=== PATIENT | female | born 1960 | race Caucasian/White ===

== ENCOUNTER 2019-05-10 07:32 | Inpatient (IN) ==
--- NOTE | 2019-05-02 10:11 | Anesthesiology Consultation ---
Date of Service May 02, 2019 Assessment & Plan (1) Encounter for pre-operative examination: PCP clearance 03/08/2019 = chronic medical conditions are stable at this time. Review of patient history, preop labs, EKG and chest x-ray, and physical exam are within normal limits. EKG compared to previous 04/15/2017 and shows no change. Patient is medically stable to proceed with surgery as planned." CHECK CBC, BMP AM DOS (no labs done within 60 days) Chart Review Chart Review: Acceptable Risk for Surgery (pending labs AM DOS) and Patient NOT seen in Pre Admission Testing History Surgery Operation Date: 05/10/19 10:30 Proposed Procedures p Left Ankle Removal of External Fixation; - John Way DO s Left Ankle and Subtalar Fusion with Retrocalcaneal Nail, Femoral Head Allograft, Application of Vivigen - John Way DO Height/Weight Height: 5 ft 10 in Weight: 83.915 kg Allergies Allergy/AdvReac Type Severity Reaction Status Date / Time Penicillins Allergy Unknown PASSED Verified 04/24/19 09:32 OUT- A CHILD-HAS NOT HAD SINCE Medications Home Medications Medication Instructions Recorded Confirmed Last Taken Ceftriaxone 50 mg PO QPM 04/24/19 04/24/19 Unknown alendronate 70 mg PO WK 04/24/19 04/24/19 Unknown calcium carbonate-vitamin D3 1 cap PO QAM 04/24/19 04/24/19 Unknown [Calcium 600 + D(3)] cholecalciferol (vitamin D3) 2,000 unit PO QAM 04/24/19 04/24/19 Unknown [Vitamin D3] cyanocobalamin (vitamin B-12) 1,000 mcg PO QAM 04/24/19 04/24/19 Unknown diclofenac sodium 50 mg PO BID 04/24/19 04/24/19 Unknown folic acid 2 mg PO QAM 04/24/19 04/24/19 Unknown hydroxychloroquine [Plaquenil] 200 mg PO TID 04/24/19 04/24/19 Unknown iron ag,fum-C-FA-mv [id number] 1 tab PO BID 04/24/19 04/24/19 Unknown [Ferrex 28] methotrexate sodium 8 PO DAILY 04/24/19 Unknown metoprolol tartrate 50 mg PO BID 04/24/19 04/24/19 Unknown Past Medical History Medical History Osteomyelitis of ankle or foot, left, acute s/p PICC line Delayed wound healing 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 Essential (primary) hypertension MVP (mitral valve prolapse) PREMEDS WITH DENTAL-ON BETA HAILEY Rheumatoid arthritis F/U DR RUPA RUANO Past Family History Family History Mother Family hx of colon cancer Past Surgical History Surgical History Cancer BASAL CELL NOSE History of ankle surgery History of appendectomy History of colonoscopy History of hysterectomy TOTAL History of open reduction and internal fixation (ORIF) procedure ORIF L FEMOR-LINSEY REMAINS IN PLACE History of tonsillectomy History of total knee replacement R/L History of vascular access device PICC LINE LEFT ARM-IN PLACE Social History Smoking Status: Never smoker Do You Dip or Chew Tobacco: No Hx Alcohol Use: Yes Alcohol type: beer, wine and hard liquor alcohol intake frequency: a few times a month Hx Substance Use: No Testing Electrocardiogram Date: 03/02/19 Sinus rhythm at [address] and T wave abnormality consistent with anterolateral ischemia. ST and T wave abnormality, possible inferior ischemia. *This EKG was reviewed PCP clearance and PCP states that compared with EKG of 04/15/2017 there is no change, and pt had echo 04/15/17 as below. Chest X-Ray Date: 03/16/19 Findings: + NAD Echocardiogram Date: 04/15/17 EF: 60-65% Normal ejection fraction and normal diastolic function. No significant valve disease noted, specifically mitral valve is normal in structure with only physiologic mitral regurgitation and normal mitral inflow pattern and tissue Doppler velocities.
--- NOTE | 2019-05-04 09:47 | History & Physical Report ---
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 All potential risks, benefits, complications, alternatives, and rehab have been discussed with the patient and she wishes to proceed. She will be scheduled for 7 with plan for ASA 81 mg BID x 4 wks for DVT prophylaxis. Discharge planning may be home with home health vs. SNF/rehab. (2) Delayed wound healing: (3) Osteomyelitis of ankle or foot, left, acute: History of Present Illness Chief Complaint: left ankle pain This is a patient who had undergone an ORIF of a left trimalleolar ankle fx. The fx because displaced and the talus became impacted at the distal tibia fx site. She was set up for removal of hardware and a subtalar and tibiotalar fusion with a retrocalcaneal nail. However, at the time of the procedure, areas of the ankle were suspicious for infection. Intra-op gram stain noted bacteria and eventual cultures showed infection. After debridement of the affected bone, an ex fix was placed on the ankle and she was admitted for IV antibiotics. She has been on IV antibiotics since the procedure and serial CBC, Sed Rate, and CRP were followed. She is now being set up for removal of the ex fix and the subtalar and tibiotalar fusions with femoral head allograft and retrocalcaneal nail. Allergies Allergy/AdvReac Type Severity Reaction Status Date / Time Penicillins Allergy Unknown PASSED Verified 04/24/19 09:32 OUT- A CHILD-HAS NOT HAD SINCE Home Medications Home Medications Medication Instructions Recorded Confirmed Type Ceftriaxone 50 mg PO QPM 04/24/19 04/24/19 History alendronate 70 mg PO WK 04/24/19 04/24/19 History calcium carbonate-vitamin D3 1 cap PO QAM 04/24/19 04/24/19 History [Calcium 600 + D(3)] cholecalciferol (vitamin D3) 2,000 unit PO QAM 04/24/19 04/24/19 History [Vitamin D3] cyanocobalamin (vitamin B-12) 1,000 mcg PO QAM 04/24/19 04/24/19 History diclofenac sodium 50 mg PO BID 04/24/19 04/24/19 History folic acid 2 mg PO QAM 04/24/19 04/24/19 History hydroxychloroquine [Plaquenil] 200 mg PO TID 04/24/19 04/24/19 History iron ag,fum-C-FA-mv [id number] 1 tab PO BID 04/24/19 04/24/19 History [Ferrex 28] methotrexate sodium 8 PO DAILY 04/24/19 History metoprolol tartrate 50 mg PO BID 04/24/19 04/24/19 History Past Med/Surg History Medical History Essential (primary) hypertension MVP (mitral valve prolapse) PREMEDS WITH DENTAL-ON BETA HAILEY Rheumatoid arthritis F/U DR RUPA RUANO Surgical History Cancer BASAL CELL NOSE History of ankle surgery History of appendectomy History of colonoscopy History of hysterectomy TOTAL History of open reduction and internal fixation (ORIF) procedure ORIF L FEMOR-LINSEY REMAINS IN PLACE History of tonsillectomy History of total knee replacement R/L History of vascular access device PICC LINE LEFT ARM-IN PLACE Family History Mother Family hx of colon cancer Social History Preferred Language: [place] Communication Ability: Effective Collar Shaper Operator Required: No Beliefs That Will Affect Care: None Current Living Situation: Spouse Other Information That Helps Us Care for You: No Feels Safe at Home: Yes Safety Concerns: Feels Safe At This Time Smoking Status: Never smoker Do You Dip or Chew Tobacco: No Second Hand Exposure: No Hx Alcohol Use: Yes Alcohol type: beer, wine and hard liquor Hx Substance Use: No Physical Exam Constitutional: well developed and well nourished; no acute distress ENMT: external ear and nose normal, oropharynx normal Neck: trachea midline, no thyromegaly Respiratory: normal respiratory effort, lungs clear to auscultation Cardiovascular: Rate/Rhythm: regular rate and regular rhythm Gastrointestinal (Abdomen): normal bowel sounds, soft, nontender, no hepatosplenomegaly Musculoskeletal: Left ankle: NWB LLE. Ex fix in place. Well healed incisions at the medial and lateral ankle. No erythema. No streaking. No drainage. ROM and strength testing were deferred because of ex fix. Skin: no rashes, warm and dry Neurologic: normal touch/pain/proprioception Psychiatric: A+Ox3, euthymic affect Lymphatic: no cervical or axillary lymphadenopathy
[~2019-05-10 07:32] MED LIST: BUPIVACAINE/EPINEPHRINE 0.5% MPF 1:200,000 30 ML VIAL ONE; CEFAZOLIN 2000MG 2,000 MG/15 ML SYR IV SCH; LR 15ML/HR IV SCH
--- NOTE | 2019-05-10 08:07 | History & Physical Bridge Note ---
Date of Service May 10, 2019 History & Physical Bridge Note I have examined the patient, reviewed the History & Physical and in the interval since the performance of the History & Physical I have noted the following changes of clinical significance: no changes noted
[2019-05-10 08:38] LABS: Hemoglobin 12.4 g/dL (12.0-16.0); Mean Corpuscular Volume 83.5 fL (80-100); Platelet Count 202 K/uL (130-400); RDW Coefficient of Variation 15.1 % (11.5-14.5); RDW Standard Deviation 46.3 fL (36.4-46.3); Red Blood Count 4.55 M/uL (4.2-5.4); White Blood Count 4.67 K/uL (4.8-10.8)
[2019-05-10 08:46] LABS: Mean Corpuscular Hgb Conc 32.6 g/dL (32-36)
[2019-05-10] MEDS ORDERED: CEFAZOLIN 2,000 MG/15 ML IV PUSH IV ONE (08:48)
[2019-05-10 08:55] LABS: Calcium 9.6 mg/dl (8.5-10.1); Creatinine Clr Calc Pharmacy 88.7 ml/min; Est GFR (African American) 104.8; Est GFR (Non-African American) 90.4; Potassium 3.4 mmol/L (3.5-5.1)
[2019-05-10] MEDS ORDERED: PROPOFOL IV EMULSION 10 MG/ML 20 ML VIAL IV ONE (10:30)
[2019-05-10] MEDS ORDERED: DEXAMETHASONE SOD INJ 4 MG/ML VIAL ONE (10:30)
[2019-05-10] MEDS ORDERED: PHENYLEPHRINE HCL 10 MG/ML VIAL ONE (10:30)
[2019-05-10] MEDS ORDERED: NEOSTIGMINE METHYLSULFATE 5 MG/5 ML SYR ONE (10:30)
[2019-05-10] MEDS ORDERED: GLYCOPYRROLATE 0.2 MG/ML VIAL ONE (10:30)
[2019-05-10] MEDS ORDERED: LIDOCAINE HCL 2% 2 ML VIAL/AMP(20MG/ML) INFIL ONE (10:30)
[2019-05-10] MEDS ORDERED: ONDANSETRON INJ 2 MG/ML 2 ML VIAL ONE (10:30)
[2019-05-10] MEDS ORDERED: ePHEDrine sulfate 50 MG/ML AMP ONE (10:30)
[2019-05-10] MEDS ORDERED: MIDAZOLAM HCL 1 MG/ML 2ML VIAL ONE (10:30)
[2019-05-10] MEDS ORDERED: SUCCINYLCHOLINE CHLORIDE 20 MG/ML 10 ML VIAL ONE (10:30)
[2019-05-10] MEDS ORDERED: fentaNYL citrate 100 MCG/2 ML VIAL ONE ×3 (10:31→14:32)
[2019-05-10] MEDS ORDERED: ROPIVACAINE 0.5% 5 MG/ML 30 ML VIAL ONE (11:31)
[2019-05-10] MEDS ORDERED: BACITRACIN INJ 50,000 UNIT VIAL ONE ×2 (11:44→13:24)
[2019-05-10] MEDS ORDERED: LABETALOL HCL IV 5 MG/ML 20ML IV PRN (13:04)
[2019-05-10] MEDS ORDERED: NALOXONE HCL 0.4 MG/1 ML VIAL/CARP IV PRN ×2 (13:04→16:57)
[2019-05-10] MEDS ORDERED: FLUMAZENIL 0.1 MG/1 ML 10 ML VIAL IV PRN (13:04)
[2019-05-10] MEDS ORDERED: ePHEDrine sulfate 50 MG/ML AMP IV PRN (13:04)
[2019-05-10] MEDS ORDERED: ATROPINE SULFATE 0.1 MG/ML 10ML SYR IV PRN (13:04)
[2019-05-10] MEDS ORDERED: ONDANSETRON INJ 2 MG/ML 2 ML VIAL IV PRN ×2 (13:04→16:57)
[2019-05-10] MEDS ORDERED: PROMETHAZINE HCL 12.5 MG in SODIUM CHLORIDE 0.9% 50 ML IV PRN (13:04)
[2019-05-10] MEDS ORDERED: HYDROmorphone INJ 1 MG/ML SYRINGE IV PRN (13:04)
--- NOTE | 2019-05-10 15:53 | Post Operative Brief Note ---
Immediate Post Op Note v1 Date of Surgery May 10, 2019 Pre & Post Diagnosis Operation Date: 05/10/19 10:30 Pre-Op Diagnosis: Closed fracture of left ankle with previously infected nonunion, degenerative arthritis tibiotalar joint, degenerative arthritis subtalar joint, retained antibiotic cement beads, retained external fixator left ankle Post-Op Diagnosis: Closed fracture of left ankle with previously infected nonunion, degenerative arthritis tibiotalar joint, degenerative arthritis subtalar joint, retained antibiotic cement beads, retained external fixator left ankle Procedure Operation Date: 05/10/19 10:30 Actual Procedures p Left Ankle Removal of External Fixation(Left) - John Way DO s Left Ankle and Subtalar Fusion with Retrocalcaneal Nail, Femoral Head Allograft, Application of Vivigen, Removal of deep Cement beads (Left) - John Way DO Surgeon John Way DO [employer] Devante Aviles PA-C Estimated Blood Loss 50 Findings Consistent with Post-Op Diagnosis Specimens Aerobic anaerobic Gram stain specimens deep left ankle Deep tissue and synovium left ankle for frozen section Anesthesia Type General Regional Complications none Disposition Accompanied Patient To Recovery: No Disposition: Recovery Room Overlapping Procedure I was present for: the critical portions of procedure. I was immediately available: during the entire case.
--- NOTE | 2019-05-10 16:45 | Anesthesiology Progress Note ---
Date of Service May 10, 2019 Anesthesia Post Procedure Vital Signs Vital Signs: Temp Pulse Pulse Resp BP Pulse Ox 05/10/19 16:35 79 18 136/75 100 05/10/19 16:25 82 18 132/79 100 05/10/19 16:15 82 18 134/82 100 05/10/19 16:08 36.1 C L 83 18 139/83 100 05/10/19 08:20 36.4 C L 71 20 133/78 100 Transfer of Care Handoff Completed per policy Notes Mental Status: alert / awake / arousable Patient Amnestic to Procedure: Yes Nausea / Vomiting: adequately controlled Pain: adequately controlled Airway Patency, RR, SpO2: stable & adequate BP & HR: stable & adequate Hydration State: stable & adequate Anesthetic Complications: no major complications apparent and Pt Satisfied with anesthetic care
[2019-05-10] MEDS ORDERED: ALUMINUM/MAGNESIUM SUSP 30 ML UDC PO PRN (16:57)
[2019-05-10] MEDS ORDERED: MAGNESIUM HYDROXIDE SUSP 30 ML UDC PO PRN (16:57)
[2019-05-10] MEDS ORDERED: BISACODYL 10 MG SUPP PR PRN (16:57)
[2019-05-10] MEDS: SODIUM CHLORIDE 0.9% 1000ML 1,000 ML IV SCH (17:06)
[2019-05-10] MEDS: ASPIRIN 81 MG ECTAB PO SCH (21:28)
[2019-05-10] MEDS: SENNA 8.6 MG TAB PO SCH (21:28)
[2019-05-10] MEDS: METOPROLOL TARTRATE 50 MG TAB PO SCH (21:28)
[2019-05-10] MEDS: CEFAZOLIN 1000MG 1,000 MG/7.5 ML SYR IV SCH (21:28)
[2019-05-10] MEDS: DOCUSATE SODIUM 100 MG CAP PO SCH (21:28)
[2019-05-10] MEDS: OXYCODONE HCL IR 5 MG TAB (IMMEDIATE RELEASE) PO PRN (21:34)
[2019-05-10] MEDS: ACETAMINOPHEN 500 MG TAB PO SCH (21:37)
--- NOTE | 2019-05-11 01:29 | Operative Report ---
DATE OF OPERATION: 05/10/2019 PREOPERATIVE DIAGNOSES: 1. Left ankle closed fracture with previously infected nonunion. 2. 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 3. 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 4. Retained antibiotic cement beads. 5. Retained external fixator of the ankle. POSTOPERATIVE DIAGNOSES: 1. Left ankle closed fracture with previously infected nonunion. 2. 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 3. 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 4. Retained antibiotic cement beads. 5. Retained external fixator of the ankle. PROCEDURES: 1. Left ankle fusion and left subtalar joint fusion with application of femoral head allograft. 2. Retrocalcaneal nail implantation. 3. Application of Vivigen bone graft substitute. 4. Removal of deep cement beads x7. 5. Removal of external fixator. SURGEON: John Way DO COMMISSARY REPRESENTATIVE: BINDU Mann who was present for patient positioning, sterile prep and drape, management of retractors and instruments. He was present through the critical portions of the case including wound closure, application of sterile dressing and transport of the patient to recovery. ANESTHESIA: General LMA with popliteal block. SPECIMENS: Bone and tissue for frozen section. Aerobic, anaerobic and Gram stain for analysis. DRAINS: None. COMPLICATIONS: None. BLOOD LOSS: 50 mL. PERTINENT HISTORY: This is a 59-year-old female who had previously sustained a closed ankle trauma with fracture. She was cared for by another provider in another location. She developed a nonunion then scheduled in my clinic for assessment and treatment. She was then optimized for surgery, underwent ORIF with plate fixation. She developed a nonunion with collapse of the tibiotalar joint. She underwent removal of her hardware and scheduled for fusion of the joint; however, intraoperative cultures revealed infection. She was then debrided and external fixator was applied with implantation of cement beads. After approximately 8 weeks of I.V. antibiotics with surveillance of laboratories, the patient was then scheduled for fusion procedure as indicated after infection appeared to be cleared based upon sedimentation rate, C-reactive protein and white blood count. The patient was then scheduled for surgery as indicated. All potential risks, benefits, complications, alternatives, rehab, potential for incomplete relief of symptoms, need for further surgery, deep venous thrombosis, pulmonary embolism, , persistent pain, swelling, scarring, weakness, neurovascular injury, wound complications, hardware failure, nonunion, malunion and bone fracture were discussed with the patient. The patient decided to proceed with the procedure as indicated. She also is aware that she may have to undergo amputation if this procedure failed. The patient then had a regional block in the preoperative holding area, she was taken to operative suite, placed supine on the operating table. I reviewed consent and identification of proper operative site, the patient was anesthetized, LMA was placed. Next, sterile prep of the external fixator. The external fixator was then removed without difficulty using box wrench. Next, the pins were then sterilized with sterile normal saline with Betadine and then also removed. The calcaneal pin was then cut after it was prepped so that a very minimal amount of the shaft would have to pass through tissue and bone. All pins were removed from the calcaneus and the tibia as appropriate. The small hole was then curetted with a small curette to encourage bleeding and then the left lower extremity was then sterilely prepped and draped in usual fashion, elevated and exsanguinated with an Esmarch bandage and tourniquet inflated to 300 mmHg. Next, with 15 blade scalpel, incision was made over the lateral aspect of the ankle at the site of prior incision. Ioban was placed over the entirety of the left lower extremity to reduce skin contamination possibility. The incision was deepened through subcutaneous tissue. Meticulous hemostasis was achieved with electrocautery. Full thickness skin flaps developed. The peroneal tendons were then identified, carefully retracted with Benjamin rakes and protected. Next, the distal fibula was then visualized and noted to be no evidence of infection. The tibiotalar joint was then entered and fibrous tissue was then debrided and the cement beads were encountered. These were then removed in their entirety. Next, the tibiotalar joint and subtalar joints were then prepared using a curette and rongeur for fusion. There was noted to be significant amount of bony loss of the talus. The talar neck and head were then pinned in place with 0.062 inch K-wire to maintain space. The space area was then irrigated with copious amount of sterile saline with pulsatile lavage and bacitracin until clear. This was then followed by use of an acetabular reamer to ream from a size 36 up to a size 47 mm and then a 44 mm x 49 mm femoral head allograft was then thawed and cut with a high subcapital cut to shape and contour the graft for the space created in the tibiotalar and subtalar joint. Next, the joint surfaces to be fused were drilled with 2.0 mm drill bit as well as the femoral head allografts also drilled with a 2.0 mm drill bit to encourage bony ingrowth. Next, the Vivigen bone graft substitute was then thawed after femoral head allograft was then placed into the tibiotalar and subtalar joints to make up space with pin in place followed by placement of a guidepin percutaneous of the plantar aspect of the heel into the calcaneus into the subtalar joint through the allograft head and into the tibiotalar joint into the distal tibia under live fluoroscopic assistance. Once this was appropriately aligned, the incision of the plantar aspect of the heel was then slightly enlarged with a hemostat and then the opening reamer was then passed through the calcaneus, subtalar joint into the femoral head allograft and into 2-3 mm of the tibia. Next, the guide pin was removed and a ball tip reamer guide was then placed through the plantar aspect of the heel through the previously made channel into the tibia and this was then placed in the distal tibia under live fluoroscopic assistance. This was placed in the center-center position and then sequential reaming was performed up to a size 11.5 mm after 180 mm ethan was marked using fluoroscopic assistance in the distal tibia to assure appropriate reaming. Next, all incisions were copiously irrigated with sterile normal saline with pulsatile lavage with bacitracin followed by placement of the femoral head allograft into the space provided with the acetabular reamers with Vivigen bone graft substitute and bone graft autograft slurry, which was created from the reaming from the calcaneus and the subtalar joint. This was stabilized with the retrocalcaneal nail which was impacted 11 mm x 180 mm in length Synthes titanium retrocalcaneal nail and it was then stabilized. There was posterior calcaneal incision with 15 blade scalpel in a live fluoroscopic assistance a 75 mm titanium spiral blade was impacted locking the nail into the calcaneus followed by a second 6 mm x 72 mm screw placed slightly superior through a small percutaneous incision at the posterior aspect of the calcaneus. Next, the nail was then impacted proximally and the femoral head allograft was then stabilized and compressed in the subtalar region through a single screw, 5 mm x 62 mm and then further impaction was performed through the retrocalcaneal nail and the tibial locking screws x2, 28 mm x 5 mm x2 mm screws and locking cap was also applied under live fluoroscopic assistance. Once this was completed, then further Vivigen bone graft substitute and autograft was impacted into the tibiotalar and subtalar joint fusion regions using a bone tamp and mallet. Once this was completed, deep soft tissue flap was closed using 2-0 Vicryl. The dermis was closed using buried interrupted 3-0 Vicryl. All small stab incision closed using a combination of Vicryl and skin valorie. This was then followed by final radiographs, AP and lateral projections and closure of the skin with 4-0 nylon. Next, a sterile compressive dressing and bulky Fam Duron plaster splint were applied overwrapped with Jaskaran wraps placed in neutral dorsiflexion. The tourniquet was released. The patient was awakened and taken to recovery in a stable condition. I attest to the content of the Intraoperative Record and any orders documented therein. Any exception s are noted below.
[2019-05-11] MEDS: OXYCODONE HCL IR 5 MG TAB (IMMEDIATE RELEASE) PO PRN ×4 (01:37→20:27)
[2019-05-11] MEDS: HYDROmorphone INJ 0.5 MG/0.5 ML SYR IV PRN ×2 (03:03→09:58)
[2019-05-11] MEDS: CEFAZOLIN 1000MG 1,000 MG/7.5 ML SYR IV SCH (03:10)
[2019-05-11] MEDS: ACETAMINOPHEN 500 MG TAB PO SCH ×3 (05:03→21:17)
--- NOTE | 2019-05-11 07:49 | Orthopedic Progress Note ---
Date of Service May 11, 2019 Assessment & Plan (1) Osteomyelitis of ankle or foot, left, acute: 59 yo female stable POD #1 s/p left ankle and subtalar fusion 1. Med management 2. DVT prophylaxis- SCDs 3. PT/OT 4. D/C planning- home Subjective Pt resting in bed, pain controlled, denies complaints Physical Exam Physical Exam: Big, bulky dressing in place, toes mobile Results & Data Vital Signs (Past 12 Hours) Vital Signs Temp Pulse Pulse Resp BP BP Pulse Ox 05/11/19 06:54 36.7 C 79 18 116/68 97 05/11/19 03:46 36.4 C L 84 18 113/66 97 05/10/19 23:37 37.0 C 82 18 107/65 96 05/10/19 21:28 98 H 142/81 H 99 05/10/19 20:55 36.4 C L 94 H 18 128/78 99 05/10/19 19:59 37.4 C 92 H 17 123/76 98 Laboratory Results 05/10/19 05/10/19 05/10/19 Range/Units 08:29 08:29 08:29 WBC 4.67 L (4.8-10.8) K/uL RBC 4.55 (4.2-5.4) M/uL Hgb 12.4 (12.0-16.0) g/dL Hct 38.0 (37-47) % MCV 83.5 (80-100) fL MCH 27.3 (25-34) pg MCHC 32.6 (32-36) g/dL RDW Std Deviation 46.3 (36.4-46.3) fL RDW Coeff of Ajay 15.1 H (11.5-14.5) % Plt Count 202 (130-400) K/uL MPV 9.0 (7.4-10.4) fL Sodium 140 (136-145) mmol/L Potassium 3.4 L (3.5-5.1) mmol/L Chloride 107 (98-107) mmol/L Carbon Dioxide 28 (21-32) mmol/L Anion Gap 5.0 (3-11) BUN 9 (7-18) mg/dl Creatinine 0.72 (0.6-1.2) mg/dl Est Cr Clr Drug Dosing 88.7 ml/min Est GFR ( Amer) 104.8 Est GFR (Non-Af Amer) 90.4 BUN/Creatinine Ratio 13.0 (10-20) Glucose 90 (70-99) mg/dl Calcium 9.6 (8.5-10.1) mg/dl Hepatitis C Ab Screen Neg (Neg)
--- NOTE | 2019-05-11 07:52 | Anesthesiology Progress Note ---
Date of Service May 11, 2019 Anesthesia Post Procedure Vital Signs Vital Signs: Temp Pulse Pulse Resp BP BP Pulse Ox 05/11/19 06:54 36.7 C 79 18 116/68 97 05/11/19 03:46 36.4 C L 84 18 113/66 97 05/10/19 23:37 37.0 C 82 18 107/65 96 05/10/19 21:28 98 H 142/81 H 99 05/10/19 20:55 36.4 C L 94 H 18 128/78 99 05/10/19 19:59 37.4 C 92 H 17 123/76 98 05/10/19 18:58 36.5 C 94 H 20 134/73 99 05/10/19 18:03 37 C 92 H 20 147/76 H 100 05/10/19 17:26 36.4 C L 78 16 129/71 98 05/10/19 17:00 36.4 C L 78 18 130/72 100 05/10/19 16:45 36.6 C 77 18 132/72 100 05/10/19 16:35 79 18 136/75 100 05/10/19 16:25 82 18 132/79 100 05/10/19 16:15 82 18 134/82 100 05/10/19 16:08 36.1 C L 83 18 139/83 100 05/10/19 08:20 36.4 C L 71 20 133/78 100 Pain Intensity Left Ankle: Pain Intensity: 2 Transfer of Care Handoff Completed per policy Notes Mental Status: alert / awake / arousable Patient Amnestic to Procedure: Yes Nausea / Vomiting: adequately controlled Pain: adequately controlled Airway Patency, RR, SpO2: stable & adequate BP & HR: stable & adequate Hydration State: stable & adequate Anesthetic Complications: no major complications apparent
[2019-05-11] MEDS: METOPROLOL TARTRATE 50 MG TAB PO SCH ×2 (08:15→20:30)
[2019-05-11] MEDS: CALCIUM 600MG + VIT D 400 IU TAB PO SCH (08:17)
[2019-05-11] MEDS: CYANOCOBALAMIN 500 MCG TABLET (VITAMIN B-12) PO SCH (08:17)
[2019-05-11] MEDS: MULTIVITAMIN TAB PO SCH (08:18)
[2019-05-11] MEDS: DOCUSATE SODIUM 100 MG CAP PO SCH ×2 (08:18→20:29)
[2019-05-11] MEDS: ASPIRIN 81 MG ECTAB PO SCH ×2 (08:18→20:29)
[2019-05-11] MEDS: CHOLECALCIFEROL 1,000 UNITS TAB PO SCH (08:18)
[2019-05-11] MEDS: SODIUM CHLORIDE 0.9% 1000ML 1,000 ML IV SCH (08:30)
--- NOTE | 2019-05-11 09:52 | Fluoroscopy Report ---
FL ankle LT 2V CLINICAL HISTORY: LEFT ANKLE FUSION COMPARISON STUDY: None FLUOROSCOPY TIME: 2 minutes 2 seconds NUMBER OF FLUOROSCOPIC IMAGES: 4 FINDINGS: Image intensifier was utilized for a left ankle fusion type procedure. Rods and pins are pr esent throughout. IMPRESSION: Image intensifier support for left ankle fusion procedure. The above report was generated using voice recognition software. It may contain grammatical, syntax or spelling errors. Electronically signed by: William Caballero M.D. 05/11/2019 9:50 AM
[2019-05-11] MEDS: SENNA 8.6 MG TAB PO SCH (20:30)
[2019-05-12] MEDS: OXYCODONE HCL IR 5 MG TAB (IMMEDIATE RELEASE) PO PRN ×4 (01:15→15:35)
[2019-05-12] MEDS: ACETAMINOPHEN 500 MG TAB PO SCH ×2 (05:17→14:02)
[2019-05-12] MEDS: CALCIUM 600MG + VIT D 400 IU TAB PO SCH (09:04)
[2019-05-12] MEDS: CHOLECALCIFEROL 1,000 UNITS TAB PO SCH (09:04)
[2019-05-12] MEDS: CYANOCOBALAMIN 500 MCG TABLET (VITAMIN B-12) PO SCH (09:05)
[2019-05-12] MEDS: DOCUSATE SODIUM 100 MG CAP PO SCH (09:05)
[2019-05-12] MEDS: MULTIVITAMIN TAB PO SCH (09:07)
[2019-05-12] MEDS: METOPROLOL TARTRATE 50 MG TAB PO SCH (09:07)
[2019-05-12] MEDS: ASPIRIN 81 MG ECTAB PO SCH (09:07)
--- NOTE | 2019-05-12 13:12 | Progress Note ---
DATE: 05/12/2019 SUBJECTIVE: The patient is postop day 2 status post left ankle fusion. She is sitting up in the bed eating her lunch today and she was feeling well without complaints. Pain is controlled and she is hoping to go home today. She denies any shortness of breath, chest pain or lightheadedness at this point in time and is feeling well. OBJECTIVE: VITAL SIGNS: Stable and she is afebrile. EXTREMITIES: Splint is clean, dry and intact. Toes were mobile and capillary refill is less than 2 seconds. NEUROLOGICAL: The patient does have a history of neuropathy and does have some blunted sensation. ASSESSMENT: Postop day 2 status post left ankle fusion. PLAN: The patient has been progressing with physical therapy and pain is controlled. She will be discharged to home today and follow up with Dr. Way in 10-14 days.
--- NOTE | 2019-05-17 04:13 | Discharge Summary ---
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 SECONDARY DIAGNOSES: Essential hypertension, mitral valve prolapse, and rheumatoid arthritis. CONSULTS: None. COMPLICATIONS: None. PROCEDURES: Left ankle fusion with left subtalar joint fusion with application of femoral head allograft, retrocalcaneal nail implantation, application of [employer] bone graft substitute, removal of deep cement beads x7, removal of external fixator by Dr. Way on 05/10/2019. BRIEF HISTORY: As dictated in the history and physical. HOSPITAL SUMMARY: The patient was admitted on the above-noted date and had the above-noted surgery performed, which she tolerated well. On her first postoperative day, she was resting in bed, pain was controlled, and had no complaints. A bulky dressing was in place. Toes were mobile. Vital signs were stable, she was afebrile. She was started on PT and OT protocol, continued on DVT prophylaxis and pain management. By her second postoperative day, she was sitting up in bed eating her lunch and was feeling well without complaints. Pain was controlled and she was hoping to go home. She denied any shortness of breath or chest pain or lightheadedness and was feeling well. Vital signs were stable and she was afebrile. Splint was clean, dry, and intact. Toes were mobile. Capillary refill was less than 2 seconds. The patient does have a history of neuropathy and does have some blunted sensation. She was continued on her protocol and was remaining stable and it was felt she could be discharged to home on 05/12/2019. For further review, please see chart. LABORATORY AND X-RAY DATA: As per chart. DISCHARGE INSTRUCTIONS: The patient was discharged to home in satisfactory condition on 05/12/2019. DIET: Regular. ACTIVITY: Nonweightbearing, left lower extremity. Follow hindfoot reconstruction, fusion. RECOMMENDATIONS AND SPECIAL CARE INSTRUCTIONS: As noted. Follow up with Dr. Way in 2 weeks. The patient is to call for appointment if one has not been made for you. DISCHARGE MEDICATIONS: Acetaminophen 1000 mg p.o. q. 8 hours, aspirin 325 mg p.o. daily, oxycodone 5 mg p.o. q. 4 hours p.r.n. Resume home meds as listed. Do not take diclofenac sodium, Plaquenil, or methotrexate.
== END 2019-05-12 15:43 | disposition home health service (06) | DRG 494 ==
LOC: ASU 07:32 → 3E 16:23